=== PATIENT | male | born 1935 | race Caucasian/White ===

== ENCOUNTER → 2017-03-12 | Outpatient (CLI) | payer MEDICARE ==
[~2017-03-12] MED LIST: ASPI81; PRIL20TA2; TAMS0.4C67; [UNRECOGNIZED DRUG - CODE]
--- NOTE | 2017-03-22 09:20 | RSPPFT ---
DATE OF PROCEDURE: 03/12/17 COMMENTS: VOLUMES DYNAMIC: FVC normal; FEV1 mildly reduced. STATIC: TLC, RV and FRC normal. FLOWS: FEV1% mildly reduced, FEF 25-75 moderately reduced. DIFFUSION: Normal. FLOW VOLUME LOOP: Pattern of variable intrathoracic airways obstruction. IMPRESSION: Mild to moderate obstructive ventilatory defect with no reduction in diffusion. There is no significant hyperinflation. Airways resistance is increased. There is no improvement post-bronchodilator.
== END ==
LOC: HRSP 08:59
PROVIDERS: ATTEND Internal Medicine
DX: J45.909 Unspecified asthma, uncomplicated (principal)
CPT/HCPCS: 94060; 94620; 94726; 94729